=== PATIENT | female | born 1945 | race Caucasian/White ===

== ENCOUNTER 2018-04-19 11:30 | Outpatient (RCR) | payer MEDICARE, SELFPAY ==
--- NOTE | 2018-01-04 11:30 | HP.PTEVAL_ITS ---
Patient's Visit Information KALEY YAP is a 72 year old F referred to Physical Therapy by Martha Blanchard MD with a diagnosis of Sciatica. Date of Evaluation: 01/04/18 Physical Therapist: Rosa Hurst - Visit Plan Frequency: 2x /Week Duration: 4 Weeks Plan: Focus on core s/s and inflammation managment (ultrasound/e-stim) - Subjective Subjective: Patient reports that she is having left sided back pain for about 6 months. It goes down the left leg if she does a lot of walking. Insidious onset. The pain comes and goes. Went to the MD and she sent her to PT. Worst: 6/10 Agg: walking, kneeling down can't get back up without help, bending over the wrong way, can take her breathe away. Describes pain as sharp/shooting and achy. Pain down the leg is more burning, N/T. The pain radiates to the amin. Eases: sitting in the chair- recylner. Best: 0/10. Sleep: not disturbed- side sleeper. No loss or change in bowel or bladder. No history of chiro or massage therapy. Had back surgery through her neck but she is unsure what they did. No injury for the back surgery just happened. No falls or loss of balance. Feels that she is very careful to avoid falls. No walker or cane- somewhat active- yardwork and clean house. PMHx/Meds: see scanned in- no changes. No x-rays or MRI taken. - Objective Posture: FH, RS, Increased kyphosis- can correct but does not maintain. Gait: no deviation noted. Stairs: asc/desc 8 recip with 1 HR. ROM: Lumbar: WNL pain with extension and SB to the left. Hip/Knee/Ankle: WNL. HR/TR: able. SLS : 10 sec without LOB. Palpation:tender along paraspinals and into the piriformis on the left. Strength: Core: fair minus, Hip: 4/5 throughout, Knee/ Ankle: 5/5. Flex: HS: no restriction - Goals Goal 1:: Patient will be I with HEP and progression Goal Time Frame: 4-6 Weeks Goal 2:: Patient will maintain proper posture t/o tx session to demo increased core s/s Goal Time Frame: 4-6 Weeks Goal 3:: Patient will report 0/10 pain for 1 week Goal Time Frame: 4-6 Weeks - Rehabilitation Potential Physical Therapy Diagnosis: Patient presents with hypomobility- she has decreased strength and muscular endurnace leading to poor posture and increased pain. Rehabilitation Potential: Fair - Anticipated Interventions Patient/Client Instruction: Educate patient on: Benefits of Fitness Program For the Purpose of:: To increase tolerance to activity/condition/position Therapeutic Exercise to Include: Strength training, Endurance training, Balance training, Body mechanics, Postural training, Flexibilty training, Dynamic Lumbar Stabilization For the Purpose of:: To improve muscle performance and motor function TENS: Yes Cryotherapy (ice pack, ice massage): Yes Thermo therapy (hot pack): Yes Ultrasound (thermal/non thermal): Yes For the Purpose of:: To decrease pain, To decrease swelling/inflammation Thank you for the opportunity to evaluate your patient. For Medicare and Medicare HMO plans, please review the plan of care and approve it. It will need to be FAXED BACK to us at [phone] for Medicare purposes. Please let me know if there are questions or concerns regarding this plan of care. Physician Signature: Date:
--- NOTE | 2018-03-08 11:21 | HP.PTREVAL_ITS ---
Martha Blanchard MD, It has been my pleasure to treat KALEY YAP over the last 5 visits for Sciatica. Please see the progress note below for an update on the physical therapy plan of care! Subjective: Patient reports that she mostly does not hurt- she only has pain when she has to bend over to put her jeans on. She has not had any of the sharp pains. She has had major dental work in the past few few weeks. Feels that she would like to continue therapy- to get the twinge to complete go away and feel more confident with a home exercise program for the future. Objective/Function: Posture: FH, RS, Increased kyphosis- can correct with verbal cues and maintains for 3 min of re-evaluation. Gait: no deviation noted. Stairs: asc/desc 8 recip with 1 HR. ROM: Lumbar: WNL discomfort with extension. Hip/Knee/Ankle: WNL. HR/TR: able. SLS: 15 sec without LOB. Palpation: tender along paraspinals and into the piriformis on the left. Strength: Core: fair, Hip: 4+/5 throughout with the exception of hip flexion 4/5 , Knee/Ankle: 5/5. Flex: HS: no restriction Plan Plan: Cont with POC 2x a week for 3 weeks with progress of HEP Goals Goal 1:: Patient will be I with HEP and progression Goal Time Frame: 4-6 Weeks Goal Progress: Progressing Goal 2:: Patient will maintain proper posture t/o tx session to demo increased core s/s Goal Time Frame: 4-6 Weeks Goal Progress: Progressing Goal 3:: Patient will report 0/10 pain for 1 week Goal Time Frame: 4-6 Weeks Goal Progress: Progressing Anticipated Interventions Patient/Client Instruction: Educate patient on: Benefits of Fitness Program For the Purpose of:: To increase tolerance to activity/condition/position Therapeutic Exercise to Include: Strength training, Endurance training, Balance training, Body mechanics, Postural training, Flexibilty training, Dynamic Lumbar Stabilization For the Purpose of:: To improve muscle performance and motor function TENS: Yes Cryotherapy (ice pack, ice massage): Yes Thermo therapy (hot pack): Yes Ultrasound (thermal/non thermal): Yes For the Purpose of:: To decrease pain, To decrease swelling/inflammation Please do not hesitate to contact me at [phone] by phone or Fax: if you have questions or concerns regarding this new plan of care! Sincerely, Rosa Hurst
--- NOTE | 2018-04-19 11:40 | HP.PTDCSUM_ITS ---
HP - PT D/C Summary It has been my pleasure to treat KALEY YAP under orders from Martha Blanchard MD, for the diagnosis of Sciatica for a total of 10 visit(s). Discharge Date: Please see the following information for a summary of their discharge status. - Subjective Subjective: Patient reports that she is doing great- she only had one episode that she was an 8/10 and it only lasted about 5 min then she was back to pain free. Has a good HEP and has no questions. Is able to walk out to the road and back and is wearing tennis shoes. - Pain Back Pain Intensity (Out of 10): 1 Hip Pain Intensity (Out of 10): 1 - Overall Improvement % Improvement: 90 - Objective Objective/Function: Posture: good posture throughout- very aware of sitting posture in hard back chair. Gait: no deviation noted. Stairs: asc/desc 8 recip with 1 HR. ROM: Lumbar: WNL no pain/discomfort. Hip/Knee/Ankle: WNL. HR /TR: able. SLS: 15 sec without LOB. Palpation: not tender Strength: Core: fair plus, Hip: 4+/5, Knee/Ankle: 5/5. Flex: HS: no restriction - Goals Goal 1:: Patient will be I with HEP and progression Goal Progress: Goal Met Goal 2:: Patient will maintain proper posture t/o tx session to demo increased core s/s Goal Progress: Goal Met Goal 3:: Patient will report 0/10 pain for 1 week Goal Progress: Goal Met - Plan Plan: Discharge to I HEP - D/C Information If there are questions or concerns regarding this patient's physical therapy, please feel free to call me at [phone]. Thank you for the referral of this patient. Sincerely, Rosa Hurst
== END 2018-04-19 19:00 | disposition home or self-care (01) ==
LOC: PT 11:30
PROVIDERS: Family Provider Family Medicine; PCP Family Medicine; Visit Provider Family Medicine
DX: M51.17 Intervertebral disc disorders with radiculopathy, lumbosacral region (principal)
CPT/HCPCS: 97014; 97035; 97110; 97162; 97164; G0283

== ENCOUNTER → 2018-12-01 08:47 | Outpatient (CLI) | payer MEDICARE, SELFPAY ==
[2018-12-01 10:29] LABS: Absolute Lymphocyte Count 1.32 X10^3/ul (0.83-4.51); Absolute Neutrophil Count 4.2 X10^3/uL (2.0-7.7); Basophil# 0.01 X10^3/uL; Basophil% 0.2 % (0-1); Eosinophil# 0.05 X10^3/uL; Eosinophils% 0.8 % (0-5); Hematocrit 39.1 % (37-47); Hemoglobin 12.7 g/dl (12.0-15.0); Lymphocyte # 1.32 X10^3/ul (4.0); Lymphocyte % 21.9 % (19-41); Mean Corp Hgb Conc 32.5 g/gl (32-36); Mean Corpuscular Hgb 32.4 pg (27.0-32.0); Mean Corpuscular Volume 99.7 fL (81-99); Mean Platelet Vol. 10.1 fl (6.2-12.0); Monocyte# 0.44 X10^3/uL; Monocyte% 7.3 % (0-10); Neutrophil # 4.19 X10^3/uL (2.7-7.7); Neutrophil % 69.6 % (47-70); Platelet Count 272 K/mm3 (150-450); RBC Distribution Width CV 13.1 % (11.6-14.6); RBC Distribution Width SD 46.9 fl (35.1-43.9); Red Blood Count 3.92 M/mm3 (4.2-5.4)
[2018-12-01 10:34] LABS: POSITIVE COUNT NO; POSITIVE DIFFERENTIAL NO; POSITIVE MORPHOLOGY NO
[2018-12-01 10:51] LABS: ALB/GLOB Ratio 1.1 RATIO (0.9-2.4); AST(SGOT) 22 U/L (15-37); Alanine Aminotransfer ALT/SGPT 34 U/L (13-56); Albumin, Serum 3.6 g/dL (3.2-5.0); Alkaline Phosphatase 83 U/L (45-117); Anion Gap 7 (5-15); BUN 18 mg/dL (7-18); Calcium,Total 8.6 mg/dL (8.5-10.1); Chloride 110 mmol/L (98-107); Cholesterol 158 mg/dL (200); Creatinine, Serum 0.64 mg/dL (0.55-1.02); EST Glomerular Filtration Rate 97 mL/min (>60); Est Glom Filt Rate - Afr Amer 117 mL/min (>60); Globulin 3.2 g/dL (2.2-4.2); Glucose 95 mg/dL (74-106); High Density Lipoprotein 73 mg/dL; Potassium 4.3 mmol/L (3.5-5.1); Protein, Total 6.8 g/dL (6.4-8.2); Sodium Level 142 mmol/L (136-145); Triglycerides 99 mg/dL; Very Low Density Lipoprotein 20 mg/dL (5-40)
== END ==
PROVIDERS: Family Provider Family Medicine; PCP Family Medicine; Referring Provider Family Medicine; Visit Provider Family Medicine
DX: R42 Dizziness and giddiness (principal); E78.5 Hyperlipidemia, unspecified; F17.200 Nicotine dependence, unspecified, uncomplicated
CPT/HCPCS: 36415; 80053; 80061; 85025

== ENCOUNTER → 2018-12-27 | Outpatient (CLI) | payer MEDICARE, OTHER, SELFPAY ==
--- NOTE | 2018-12-27 12:44 | BI_ITS ---
MAMMOGRAPHY - BILATERAL SCREENING REASON FOR EXAM: Female, 73 years old. Routine annual screening examination. PERTINENT HISTORY: Grandmother with breast cancer. TECHNIQUE: Digital bilateral breast justin (3D mammographic acquisition) in the CC and MLO projections. 2-D mediolateral oblique (MLO) and craniocaudad (CC) views of both breasts were obtained. CAD: Full Field Digital Mammography with Computer Added Detection was performed. COMPARISON: Comparison is made with prior examination dated July 05, 2013. FINDINGS: Breast Composition: There are scattered areas of fibroglandular density. There are no dominant masses or suspicious calcifications. No other significant abnormalities are identified. There has been no significant change since the prior study. BI/SCREENING MAMM (CAD), BILAT IMPRESSION: Stable bilateral screening mammogram. Yearly follow-up mammogram recommended. (A) ASSESSMENT CATEGORY: BIRADS Category 1: Negative. A letter regarding these results will be sent to the patient by the facility within 30 days. Approximately 10% of breast cancers are not detected by mammography. A normal mammogram should not delay biopsy of a clinically suspicious abnormality. [id number] Electronically Signed: Jagjit Guillaume, at 11:10 EDT , Service support ,
== END | disposition home or self-care (01) ==
PROVIDERS: Family Provider Family Medicine; PCP Family Medicine; Referring Provider Family Medicine; Visit Provider Family Medicine
DX: Z12.31 Encounter for screening mammogram for malignant neoplasm of breast (principal)
CPT/HCPCS: 77063; 77067

== ENCOUNTER → 2020-03-26 09:53 | Outpatient (CLI) | payer MEDICARE, OTHER, SELFPAY ==
[2020-03-26 12:40] LABS: Absolute Lymphocyte Count 1.53 X10^3/uL (0.83-4.51); Absolute Neutrophil Count 4.9 X10^3/uL (2.0-7.7); Basophil# 0.02 X10^3/uL; Basophil% 0.3 % (0-1); Eosinophils% 1.4 % (0-5); Hematocrit 40.4 % (37-47); Lymphocyte # 1.53 X10^3/ul (4.0); Lymphocyte % 21.9 % (19-41); Mean Corp Hgb Conc 32.2 g/dL (32-36); Mean Corpuscular Hgb 32.4 pg (27.0-32.0); Mean Corpuscular Volume 100.7 fL (81-99); Mean Platelet Vol. 10.7 fl (6.2-12.0); Monocyte# 0.46 X10^3/uL; Monocyte% 6.6 % (0-10); NRBC Flagged by Analyzer 0 % (0-5); Neutrophil # 4.87 X10^3/uL (2.7-7.7); Neutrophil % 69.5 % (47-70); Platelet Count 246 K/mm3 (150-450); RBC Distribution Width SD 48.1 fl (35.1-43.9); Red Blood Count 4.01 M/mm3 (4.2-5.4)
[2020-03-26 13:30] LABS: ALB/GLOB Ratio 1.1 RATIO (0.9-2.4); AST(SGOT) 27 U/L (15-37); Alanine Aminotransfer ALT/SGPT 30 U/L (13-56); Albumin, Serum 3.7 g/dL (3.2-5.0); Alkaline Phosphatase 84 U/L (45-117); Anion Gap 6 (5-15); BUN 23 mg/dL (7-18); BUN/Creat Ratio 31.1 RATIO (10-20); Chloride 105 mmol/L (98-107); Cholesterol 153 mg/dL (200); Creatinine, Serum 0.74 mg/dL (0.55-1.02); EST Glomerular Filtration Rate 82 mL/min (>60); Est Glom Filt Rate - Afr Amer 99 mL/min (>60); Globulin 3.4 g/dL (2.2-4.2); Glucose 94 mg/dL (74-106); High Density Lipoprotein 73 mg/dL; Potassium 4.7 mmol/L (3.5-5.1); Protein, Total 7.1 g/dL (6.4-8.2); Sodium Level 138 mmol/L (136-145); Triglycerides 92 mg/dL; Very Low Density Lipoprotein 18 mg/dL (5-40)
== END ==
PROVIDERS: PCP Family Medicine; Visit Provider Family Medicine
DX: E78.5 Hyperlipidemia, unspecified (principal); F17.200 Nicotine dependence, unspecified, uncomplicated
CPT/HCPCS: 36415; 80053; 80061; 85025

== ENCOUNTER → 2020-09-11 14:16 | Outpatient (CLI) | payer MEDICARE, OTHER, SELFPAY | PROVIDERS: PCP Family Medicine; Visit Provider Family Medicine | DX: R30.0 Dysuria (principal) | CPT/HCPCS: 87086; 87088 ==

== ENCOUNTER 2023-01-07 07:57 | Emergency (ER) | payer MEDICARE, OTHER, SELFPAY ==
[2023-01-07 07:59] VITALS: BP 103/60; PULSE 78; RESP 16; TEMP 36.3; O2SAT 96; BMI 22.4
--- NOTE | 2023-01-07 08:25 | RAD_ITS ---
STUDY: X-RAY CHEST REASON FOR EXAM: Female, 77 years old. Cp TECHNIQUE: Single AP portable view of the chest. COMPARISON: None. FINDINGS: EKG electrodes are seen. Hyperinflation. Increased linear markings in the posterior medial segment of the left lower lobe suggestive of either atelectasis and/or scarring. There is no demonstrated pleural abnormality. Normal size heart. Normal mediastinum and renetta. Normal visualized pulmonary arteries. There is atherosclerotic calcification of the aortic arch with tortuosity. There are degenerative changes of the visualized thoracic spine. Normal visualized ribs, clavicles, and shoulders. There is no demonstrated abnormality of the visualized soft tissue structures of the upper abdomen. RAD/Chest 1 View (Portable) IMPRESSION: Hyperinflation. Mild increased linear markings in the posterior medial segment of the left lower lobe suggestive of either atelectasis and/or scarring. Electronically Signed: Jagjit Guillaume MD at 8:57 EDT ,
--- NOTE | 2023-01-07 08:26 | EKG12_ITS ---
Test Reason : CP Blood Pressure : / mmHG Vent. Rate : 076 BPM Atrial Rate : 076 BPM P-R Int : 150 ms QRS Dur : 084 ms QT Int : 364 ms P-R-T Axes : 071 -27 033 degrees QTc Int : 409 ms Normal sinus rhythm Normal ECG Confirmed by LYNN MARTE, BRANDY ([id number]), desk editor JOANNE POWELL ([id number]) on 01/12/2023 10:49:42 AM Referred By: DELORES Confirmed By:BRANDY BAILEY MD
[2023-01-07] MEDS: Ketorolac 15 MG/ML Vial IV (08:34)
--- NOTE | 2023-01-07 08:34 | EDS_ITS ---
HPI History of Present Illness Chief Complaint: Chest Pain Narrative Narrative: Patient presents with nonpleuritic retrosternal pain that started about 3 hours ago. She has no back pain or tearing sensation other than her lower back pain that she has chronically, she had recent surgery last month on the lumbar region and then again 19 days ago for a dural leak. This pain is chronic and unchanged. The chest pain is new. The chest pain does not radiate to arms legs or jaw or back. There is no difficulty breathing or pleuritic component. She has no lower extremity edema or calf pain. She has no nausea or vomiting. PFSH PFSH Home Medications cyclobenzaprine 5 mg tablet 5 mg PO DAILY 01/07/23 [History Last Taken Unknown] ferrous sulfate 325 mg (65 mg iron) tablet (FeroSul) 325 mg PO DAILY 01/07/23 [History Last Taken Unknown] oxycodone 5 mg tablet 5 mg PO Q6H PRN PRN Pain 01/07/23 [History Last Taken Unknown] simvastatin 40 mg tablet 40 mg PO DAILY 01/07/23 [History Last Taken Unknown] Allergy/AdvReac Type Severity Reaction Status Date / Time No Known Allergies Allergy Verified 01/07/23 07:58 Social History Smoking Status: Former smoker ROS ROS ED ROS Narrative Past medical history: Reviewed Medications: Reviewed Social history: Noncontributory Review of systems: All systems negative except as indicated General: No fever Eyes: No visual changes ENT: No upper airway congestion, normal voice Neck: No neck pain Cardiovascular: As in HPI Respiratory: No shortness of breath or cough Gastrointestinal: No abdominal pain, nausea vomiting or diarrhea Genitourinary: No dysuria Musculoskeletal: Denies myalgias. Low back pain as in HPI Skin: No rash Neurological: No memory loss, confusion or any focal weakness EXAM Physical Exam Narrative Exam Narrative: Physical exam General: Well nourished, Well developed, No Acute Distress Head: Normocephalic, Atraumatic Eyes: Conjunctiva not pale ENT: Moist mucous membranes Neck: Supple, Nontender, No lymphadenopathy Cardiovascular: Regular rate, Regular rhythm. No murmurs noted. Respiratory: No distress, CTA bilaterally Abdomen: Soft, Nontender, Nondistended Back: Lumbar incision is clean dry and intact. No evidence of infection. No other back pain. Extremities: Nontender, No edema. No lower extremity edema. No calf pain Skin: Normal color, No rash Neurological: Alert, Normal Strength, Normal Sensation Psychological: Normal affect Const Vital Signs: 01/07/23 07:59 01/07/23 08:06 01/07/23 10:17 Temperature 97.3 F L Temperature Source Temporal Pulse Rate 78 74 Respiratory Rate 16 16 Respiratory Effort Normal Non-Labored Blood Pressure 103/60 108/62 Blood Pressure Mean 74 77 Pulse Ox 96 98 Oxygen Delivery Method Room Air Room Air MDM MDM MDM Narrative Medical decision making narrative: A. Problems addressed Patient has chest pain, from the cardiac standpoint she was ruled adequately with an unremarkable EKG and 2 normal troponins. Her D-dimer was elevated but CT angiogram was normal. Patient appears well, she is now asymptomatic feels quite relieved after I told her the news and wants to be discharged this is quite reasonable. I will discharge her in stable condition. As far as her back, her incision is clean dry and intact and her pain is well controlled. B. Amount and/or complexity of the data 1. CBC CMP and 2 troponins were ordered and interpreted by me I discussed the patient with who was in the room 2. Independent interpretation of test Telemetry: Sinus rhythm with a rate in the 70s and 80s without ectopy C. Patient was seen by me in the emergency department. I have considered the following differential diagnoses however I was able to exclude all of these through a thorough history and physical exam as well as laboratory testing: PE or any thromboembolic etiologies, myocardial infarction, aortic dissection, esophageal rupture, pneumothorax, musculoskeletal emergencies, upper abdominal pathologies such as pancreatitis, cholecystitis or choledocholithiasis, as well as ruptured bowel. I considered admission but after discussion with the patient we came to a mutual agreement that the patient is stable for discharge due to the following reasons: Patient is adequately ruled out for ACS per our hospital protocol. PE study is normal. Lab Data Labs: Laboratory Results - last 24 hr 01/07/23 01/07/23 01/07/23 08:09 08:09 08:09 WBC 5.5 RBC 2.95 L Hgb 9.6 L Hct 30.7 L MCV 104.1 H MCH 32.5 H MCHC 31.3 L RDW Std Deviation 47.9 H RDW Coeff of Shazia 12.6 Plt Count 465 H MPV 9.0 Immature Gran % (Auto) 0.500 Neut % (Auto) 71.8 H Lymph % (Auto) 17.8 L [place] % (Auto) 7.5 Eos % (Auto) 2.0 Baso % (Auto) 0.4 Absolute Neuts (auto) 4.0 Absolute Lymphs (auto) 0.98 Nucleated RBC % 0 D-Dimer Quant (PE/DVT) 2.25 H* Sodium 139 Potassium 4.1 Chloride 109 H Carbon Dioxide 26.0 Anion Gap 4 L BUN 11 Creatinine 0.48 L Estim Creat Clear Calc 45.50 Est GFR (MDRD) Af Amer 160 Est GFR (MDRD) Non-Af 132 BUN/Creatinine Ratio 22.7 H Glucose 103 Calcium 8.9 Total Bilirubin 0.30 AST 16 ALT 17 Alkaline Phosphatase 135 H Troponin I High Sens 6 Total Protein 6.3 L Albumin 3.0 L Globulin 3.3 Albumin/Globulin Ratio 0.9 01/07/23 10:14 WBC RBC Hgb Hct MCV MCH MCHC RDW Std Deviation RDW Coeff of Shazia Plt Count MPV Immature Gran % (Auto) Neut % (Auto) Lymph % (Auto) [place] % (Auto) Eos % (Auto) Baso % (Auto) Absolute Neuts (auto) Absolute Lymphs (auto) Nucleated RBC % D-Dimer Quant (PE/DVT) Sodium Potassium Chloride Carbon Dioxide Anion Gap BUN Creatinine Estim Creat Clear Calc Est GFR (MDRD) Af Amer Est GFR (MDRD) Non-Af BUN/Creatinine Ratio Glucose Calcium Total Bilirubin AST ALT Alkaline Phosphatase Troponin I High Sens 4 Total Protein Albumin Globulin Albumin/Globulin Ratio Radiography Diagnostic Testing: Clinical Impression(s) from Imaging Studies Chest X-Ray 01/07/23 08:25 IMPRESSION: Hyperinflation. Mild increased linear markings in the posterior medial segment of the left lower lobe suggestive of either atelectasis and/or scarring. Electronically Signed: Jagjit Guillaume MD at 8:57 EDT , Chest CTA 01/07/23 09:02 IMPRESSION: 5.1 mm slightly spiculated nodule in the anterior lateral aspect of the right upper lobe as described. A 6 month follow-up CT chest is recommended for further evaluation. Hyperinflation and emphysematous changes with scarring at both lung bases. No evidence of pulmonary embolism. Electronically Signed: Jagjit Guillaume MD at 9:58 EDT , Chest x-ray interpreted by me as normal EKG Initial EKG: Comments: Sinus rhythm with a rate of 76. Normal NH and QTc intervals. No ischemic changes. Interpreted by emergency doctor Discharge Plan Triage Chief Complaint: Chest Pain Other Complaint: Back ED Provider: Charles Palmer Dx/Rx/DC Orders Clinical Impression: Encounter for post surgical wound check, Chest pain Instructions: ED Chest Pain, Uncertain Cause Prescriptions: No Action simvastatin 40 mg tablet 40 mg PO DAILY Label Comments: Take 1 tablet by mouth once daily ferrous sulfate [FeroSul] 325 mg (65 mg iron) tablet 325 mg PO DAILY Label Comments: Take 1 tablet by mouth once daily. oxycodone 5 mg tablet 5 mg PO Q6H PRN PRN (Reason: Pain) Label Comments: Take 1 tablet by mouth every 6 hours as needed for pain. cyclobenzaprine 5 mg tablet 5 mg PO DAILY Label Comments: Take 1 tablet by mouth three times daily as needed for muscle spasm. Primary Care Provider: Martha Blanchard Referrals: Martha Blanchard MD [Primary Care Provider] - 1-2 Days if not improving Disposition Disposition: Home, Self Care
[2023-01-07 08:37] LABS: Absolute Lymphocyte Count 0.98 X10^3/uL (0.83-4.51); Basophil# 0.02 X10^3/uL; Basophil% 0.4 % (0-1); Eosinophil# 0.11 X10^3/uL; Hematocrit 30.7 % (37-47); Hemoglobin 9.6 g/dL (12.0-15.0); Lymphocyte # 0.98 X10^3/ul (0.83-4.51); Lymphocyte % 17.8 % (19-41); Mean Corp Hgb Conc 31.3 g/dL (32-36); Mean Corpuscular Hgb 32.5 pg (27.0-32.0); Mean Corpuscular Volume 104.1 fL (81-99); Monocyte# 0.41 X10^3/uL; Monocyte% 7.5 % (0-10); NRBC Flagged by Analyzer 0 % (0-5); Neutrophil # 3.95 X10^3/uL (2.7-7.7); Neutrophil % 71.8 % (47-70); Platelet Count 465 K/mm3 (150-450); RBC Distribution Width CV 12.6 % (11.6-14.6); RBC Distribution Width SD 47.9 fl (35.1-43.9); Red Blood Count 2.95 M/mm3 (4.2-5.4); White Blood Count 5.5 K/mm3 (4.4-11.0)
[2023-01-07 08:54] LABS: D-Dimer Quantitative (DVT/PE) 2.25 FEU/ug/m (0.27-0.49)
--- NOTE | 2023-01-07 08:55 | ED.RN ---
LAB CALLED CRITICAL OF D-DIMER OF 2.25. DR HENSON
[2023-01-07 09:01] LABS: ALB/GLOB Ratio 0.9 RATIO (0.9-2.4); AST(SGOT) 16 U/L (15-37); Alanine Aminotransfer ALT/SGPT 17 U/L (13-56); Alkaline Phosphatase 135 U/L (45-117); Anion Gap 4 (5-15); BUN 11 mg/dL (7-18); BUN/Creat Ratio 22.7 RATIO (10-20); Calcium,Total 8.9 mg/dL (8.5-10.1); Chloride 109 mmol/L (98-107); Creatinine, Serum 0.48 mg/dL (0.55-1.02); EST Glomerular Filtration Rate 132 mL/min (>60); Est Glom Filt Rate - Afr Amer 160 mL/min (>60); Globulin 3.3 g/dL (2.2-4.2); Glucose 103 mg/dL (74-106); Potassium 4.1 mmol/L (3.5-5.1); Protein, Total 6.3 g/dL (6.4-8.2); Sodium Level 139 mmol/L (136-145); Troponin-I HS 6 pg/mL (3.0-54.0)
--- NOTE | 2023-01-07 09:02 | CT_ITS ---
STUDY: CTA CHEST REASON FOR EXAM: Female, 77 years old. PE RADIATION DOSAGE (If Supplied By Facility): CTDIvol = ( 9.23 ) mGy, DLP = ( 210.03 ) mGycm TECHNIQUE: The examination was performed with the intravenous administration of IV 100mL Isovue-370. Post-processing of the angiographic images was performed, with multiplanar reformation and 3D reconstruction. Individualized dose optimization techniques were used for this CT. COMPARISON: None. FINDINGS: Normal enhancement of the main pulmonary artery and right and left pulmonary arteries. Normal enhancement of the bilateral peripheral pulmonary arteries. There is no demonstrated pulmonary embolism. Normal thoracic aorta and visualized great vessels. There is no demonstrated aortic dissection. There are calcifications of the coronary arteries. Normal mediastinum. Normal hilar regions. Normal visualized trachea and bronchi. Hyperinflation. Mild degree of emphysematous changes more prominent in the upper lobes. There is a 5.1 mm slightly spiculated nodule in the anterior lateral aspect of the right upper lobe as seen on axial image #149 and coronal image #58. Increased markings at the lung bases suggestive of a basilar scarring. Normal pleura. Normal chest wall structures. There are degenerative changes of thoracic spine. Normal visualized upper abdomen. CT/CTA Chest W/WO Contrast IMPRESSION: 5.1 mm slightly spiculated nodule in the anterior lateral aspect of the right upper lobe as described. A 6 month follow-up CT chest is recommended for further evaluation. Hyperinflation and emphysematous changes with scarring at both lung bases. No evidence of pulmonary embolism. Electronically Signed: Jagjit Guillaume MD at 9:58 EDT ,
[2023-01-07 10:17] VITALS: BP 108/62; PULSE 74; RESP 16; O2SAT 98
[2023-01-07 10:38] LABS: Troponin-I HS 4 pg/mL (3.0-54.0)
[2023-01-07 12:09] VITALS: BP 111/58; PULSE 72; RESP 15; O2SAT 98
== END 2023-01-07 12:10 | disposition home or self-care (01) ==
PROVIDERS: Emergency Provider Emergency Medicine; PCP Family Medicine; Visit Provider Emergency Medicine
DX: R07.9 Chest pain, unspecified (principal); Z79.899 Other long term (current) drug therapy; Z87.891 Personal history of nicotine dependence
CPT/HCPCS: 71045; 71275; 80053; 84484; 85025; 85379; 93005; 96374; 99285; Q9967

== ENCOUNTER → 2023-06-22 | Outpatient (CLI) | payer MEDICARE, OTHER, SELFPAY ==
[2023-06-22 12:18] LABS: Anion Gap 4 (5-15); BUN 15 mg/dL (7-18); BUN/Creat Ratio 21.9 RATIO (10-20); Calcium,Total 8.9 mg/dL (8.5-10.1); Chloride 107 mmol/L (98-107); Creatinine, Serum 0.68 mg/dL (0.55-1.02); EST Glomerular Filtration Rate 89 mL/min (>60); Est Glom Filt Rate - Afr Amer 107 mL/min (>60); Glucose 83 mg/dL (74-106); Potassium 4.9 mmol/L (3.5-5.1); Sodium Level 142 mmol/L (136-145)
== END | disposition home or self-care (01) ==
LOC: BFHLAB 09:02
PROVIDERS: PCP Nurse Practitioner Family; Referring Provider Nurse Practitioner Family; Visit Provider Nurse Practitioner Family
DX: Z01.818 Encounter for other preprocedural examination (principal)
CPT/HCPCS: 36415; 80048

== ENCOUNTER → 2023-07-03 | Outpatient (CLI) | payer MEDICARE, OTHER, SELFPAY ==
--- NOTE | 2023-07-03 12:54 | CT_ITS ---
EXAM: CT CHEST WITHOUT INTRAVENOUS CONTRAST CLINICAL INDICATION: LUNG NODULE TECHNIQUE: Helically acquired images were obtained of the chest without intravenous contrast. This CT exam was performed using one or more of the following dose reduction techniques: automated exposure control, adjustment of the mA and/or kV according to patient size, and/or use of iterative reconstruction technique. COMPARISON: CTA chest, 01/07/2023 FINDINGS: LUNGS AND PLEURAL SPACES: Unchanged spiculated 5 mm nodule in the right upper lobe. Pleural-based small nodules in the right upper lobe are present, largest measuring 5 mm. Unchanged 4 mm spiculated nodule in the left upper lobe. Dependent airspace disease in the bilateral lungs, likely indicative of atelectasis. Bilateral apical scarring. Centrilobular emphysematous changes. HEART: Coronary artery calcifications and/or stents. Heart size is normal. No pericardial effusion. MEDIASTINUM: No significant abnormality. No mediastinal or hilar adenopathy. Esophagus is unremarkable. No hiatal hernia. THYROID: No significant abnormality. No thyroid lesions. BONES/JOINTS: Degenerative changes in the spine. No suspicious lytic or blastic abnormality. VASCULATURE: Atherosclerosis of the aorta and its branch vessels. CT/Chest without Contrast IMPRESSION: 1. Unchanged pulmonary nodules since prior examination dated 01/07/2023. Fleischner Society Guidelines (MacMahon, et al. Radiology 2017; 284(1):228-43) suggest that one should consider a follow-up chest CT at 12 months in a patient with a high risk of malignancy due to the morphology and/or location of this nodule. If unchanged, no further follow-up is necessary. 2. Centrilobular emphysematous changes. Electronically Signed: Gustavo Dickson DO at 23:33 EDT ,
== END | disposition home or self-care (01) ==
LOC: CT 12:54
PROVIDERS: PCP Nurse Practitioner Family; Referring Provider Family Medicine; Visit Provider Family Medicine
DX: R91.1 Solitary pulmonary nodule (principal)
CPT/HCPCS: 71250

== ENCOUNTER → 2024-08-03 | Outpatient (CLI) | payer MEDICARE, OTHER, SELFPAY ==
--- NOTE | 2024-08-03 11:11 | RAD_ITS ---
INDICATION: abnormal stress EXAMINATION/TECHNIQUE: X-RAY - XR Chest 2 Views COMPARISON: January 07, 2023 FINDINGS: LINES/DEVICES: None. LUNGS: No consolidation, edema or effusion. No pneumothorax. MEDIASTINUM AND CARDIOVASCULAR STRUCTURES: Cardiac silhouette not enlarged. Central airways and mediastinal contour are unremarkable. BONES AND SOFT TISSUES: There are postsurgical changes at the visualized lumbar spine. RAD/Chest PA and Lateral IMPRESSION: No radiographic evidence of acute cardiopulmonary disease. Electronically Signed: Mary Jo Welch MD at 8:29 EST ,
[2024-08-03 12:36] LABS: Absolute Lymphocyte Count 2.22 X10^3/uL (0.83-4.51); Absolute Neutrophil Count 4.7 X10^3/uL (2.0-7.7); Basophil# 0.04 X10^3/uL; Basophil% 0.5 % (0-1); Eosinophils% 1.3 % (0-5); Hematocrit 37.8 % (37-47); Hemoglobin 12.6 g/dL (12.0-15.0); Lymphocyte # 2.22 X10^3/ul (0.83-4.51); Lymphocyte % 29.1 % (19-41); Mean Corp Hgb Conc 33.3 g/dL (32-36); Mean Corpuscular Hgb 32.7 pg (27.0-32.0); Mean Corpuscular Volume 98.2 fL (81-99); Mean Platelet Vol. 9.8 fl (6.2-12.0); Monocyte# 0.56 X10^3/uL; Monocyte% 7.3 % (0-10); NRBC Flagged by Analyzer 0 % (0-5); Neutrophil # 4.68 X10^3/uL (2.7-7.7); Neutrophil % 61.4 % (47-70); Platelet Count 278 K/mm3 (150-450); RBC Distribution Width CV 13.5 % (11.6-14.6); RBC Distribution Width SD 49.1 fl (35.1-43.9); Red Blood Count 3.85 M/mm3 (4.2-5.4); White Blood Count 7.6 K/mm3 (4.4-11.0)
[2024-08-03 13:05] LABS: Anion Gap 4 (5-15); BUN 21 mg/dL (7-18); BUN/Creat Ratio 37.2 RATIO (10-20); Calcium,Total 8.9 mg/dL (8.5-10.1); Chloride 110 mmol/L (98-107); Creatinine, Serum 0.56 mg/dL (0.55-1.02); EST Glomerular Filtration Rate 111 mL/min (>60); Est Glom Filt Rate - Afr Amer 134 mL/min (>60); Glucose 94 mg/dL (74-106); Potassium 4.3 mmol/L (3.5-5.1); Sodium Level 138 mmol/L (136-145)
== END | disposition home or self-care (01) ==
LOC: RAD 11:09
PROVIDERS: PCP Family Medicine; Referring Provider Internal Medicine Cardiovascular Disease; Visit Provider Internal Medicine Cardiovascular Disease
DX: R94.39 Abnormal result of other cardiovascular function study (principal)
CPT/HCPCS: 36415; 71046; 80048; 85025

== ENCOUNTER 2024-08-09 08:02 | Day surgery (SDC) | payer MEDICARE, OTHER, SELFPAY ==
[2024-08-08 08:15] VITALS: BMI 23.1
--- NOTE | 2024-08-09 09:26 | CL.D_ITS ---
Patient Name: KALEY YAP Study Date: 08/09/2024 Performing: Gabriel Kaplan MD Ht: 66 inches 167.64 cm : 1945 Wt: 142.99 lbs 64.86 kg Age: 78 Gender: female BSA: 1.73 PROCEDURE(S) PERFORMED DC01-(45142)LHC/COR/LV CLINICAL PROFILE AND INDICATIONS Indications: Suspected CAD Heart Failure: None Stress/Imaging Date: 03/27/24Stress Test with SPECT MPI: Positive Low Risk CAD Presentations: No Sxs, no angina. CONCLUSIONS Mild coronary calcification but no high-grade obstructive disease present. Preserved ejection fraction. RECOMMENDATIONS Medical therapy DESCRIPTION OF PROCEDURE The patient arrived to the procedure lab. The risks and benefits of the procedure as well as a full description of our services here and current unavailability of surgical backup were fully explained to the patient and/or their significant other prior to the catheterization. The Timeout was completed, verifying the correct patient and procedure. The patient's procedural site was prepped and draped in the usual fashion. Local anesthetic was given subcutaneously to right radial region with Lidocaine 2%. Using a modified Seldinger technique, arterial access was obtained via the right radial artery, a 6Fr sheath was inserted. Left Coronary Artery selective angiography was performed in multiple views using a 5 Fr. 4.0 Elberfeld catheter. Right Coronary Artery selective angiography was then performed in multiple views using a 5 Fr. 4.0 Elberfeld catheter. Left Ventriculography was performed in STERLING projection using a 5 Fr. Pigtail catheter. LV to AO pullback pressures were then recorded.The arterial sheath was pulled and a TR Band was applied for hemostasis. 11cc of air applied CORONARY ANGIOGRAPHY DOMINANCE: Right Dominant LEFT HEART ASSESSMENT Left Ventricular Ejection Fraction: by LV Gram 70 % Normal LV wall motion Normal Left Ventricular systolic function LEFT MAIN: Angiographically normal LEFT ANTERIOR DESCENDING ARTERY: Moderate calcification, Medium size vessel with 3 diagonal branches with no high-grade stenosis present. CIRCUMFLEX ARTERY: Mild luminal irregularities less than 30% RIGHT CORONARY ARTERY: Mild calcification Mild luminal irregularities less than 30% COMPLICATIONS No Complications PROCEDURE MEDICATIONS Versed 0.5 mg IV Fentanyl 25 mcg IV Fentanyl 25 mcg IV Versed 0.5 mg IV Versed 1 mg IV Versed 1 mg IV Oxygen: 2 L/min via nasal cannula Heparin given IA 08/09/2024 09:09:24 Verapamil 2.5mg, Ntg 100mcgs, 3000 units of Heparin given IA 08/09/2024 09:09:24 SUMMARY OF HEMODYNAMIC DATA Time AIR REST ECG 08:21:37 ECG 08:22:08 ECG 08:41:29 AO 94/54 (72) SA 09:12:44 LV 96/0, 6 09:17:28 LV 88/0, 6 09:17:35 LV 98/2, 9 09:18:14 LVp 96/-3, 8 09:18:17 AOp 108/49 (73) 09:18:22 Signed By Gabriel Kaplan MD On 08/09/2024 09:26:06 Gabriel Kaplan MD
== END 2024-08-09 11:50 | disposition home or self-care (01) ==
PROVIDERS: PCP Family Medicine; Referring Provider Internal Medicine Cardiovascular Disease; Visit Provider Internal Medicine Cardiovascular Disease
DX: I25.10 Atherosclerotic heart disease of native coronary artery without angina pectoris (principal); R94.39 Abnormal result of other cardiovascular function study; E78.5 Hyperlipidemia, unspecified; M54.50 Low back pain, unspecified; G89.29 Other chronic pain; M43.16 Spondylolisthesis, lumbar region; F17.200 Nicotine dependence, unspecified, uncomplicated; Z98.1 Arthrodesis status; Z79.82 Long term (current) use of aspirin; Z79.899 Other long term (current) drug therapy
CPT/HCPCS: 93458; 99152; 99153; Q9967; C1769; C1894

== ENCOUNTER 2025-04-20 09:43 | Day surgery (SDC) | payer MEDICARE, OTHER, SELFPAY ==
--- NOTE | 2025-04-17 10:02 | PAT.ANESEVAL ---
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 When Was Last Pacemaker Check QUESTION #4 FULL TEXT: You/Your Family Experience fever (hyperthermia) with Anesthesia Last Oral Intake Last Oral intake: Last Oral Intake NPO since Meds taken in AM with sips of water? Meds patient instructed to take am of surgery PONV PONV - commodity supervisor: PONV - commodity supervisor Female Yes 04/17/25 09:04 HX of Motion Sickness No 04/17/25 09:04 HX of N/V After Surgery No 04/17/25 09:04 Non-Smoker Yes 04/17/25 09:04 Duration of Surgery greater No 04/17/25 09:04 than 60 minutes Number of Risk Factors 2 04/17/25 09:04 PONV Score Moderate Risk 04/17/25 09:04 Height & Weight Height & Weight: Anesthesia: Height & Weight Height 5 ft 6 in 02/27/25 10:15 Respiratory Assessment Respiratory Assessment - commodity supervisor: Respiratory Tract Infection Hx - commodity supervisor Hx Respiratory Tract Infection No 04/17/25 09:04 STOP Sleep Apnea STOP Sleep Apnea - commodity supervisor: STOP Sleep Apnea - commodity supervisor Hx Hypertension Yes: CONTROLLED ON MED 04/17/25 09:04 Hx Sleep Apnea No 04/17/25 09:04 CPAP BIPAP Do you snore loudly (louder No 04/17/25 09:04 than talking or can be heard Do you often feel tired/ No 04/17/25 09:04 fatigued/ sleepy during daytime? Has anyone observed you stop No 04/17/25 09:04 breathing during sleep? STOP Results Negative 04/17/25 09:04 QUESTION #5 FULL TEXT : Do you snore loudly (louder than talking or can be heard through closed doors)? 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 Specify any problems Hx of Preganancy in last 3 No 04/17/25 09:04 Months Nurse Filling Out Transfusion VCHRISTIN 04/17/25 09:04 & Questions: Date: 04/17/25 04/17/25 09:04 Time: 09:06 04/17/25 09:04 Patient unable to answer at this time (ie. confused, unrespo /Reproduction History /Reproductive History - commodity supervisor: /Reproductive Hx- commodity supervisor Hx Now No 04/17/25 09:04 Gestational Age (in weeks): EDC: Hx Hx Para Hx Section SAB No 04/17/25 09:04 [facility] Medical History (Updated 04/17/25 @ 09:04 by Marleny Lambert) Wears glasses Post-menopausal Ambulates with cane Rheumatoid arthritis Back pain Migraine headache Gastric reflux Former smoker History of stress test Cardiology follow-up encounter Hearing problem Frequent headaches UTI (urinary tract infection) Arthritis Impaired functional mobility, balance, and endurance Bilateral leg weakness Spondylolisthesis of lumbar region Hyperlipidemia Vertigo Chronic low back pain Abnormal stress test Home Medications ?Medication ?Instructions ?Recorded ?Last Taken ?Type oxycodone 5 mg tablet 5 mg PO Q6H PRN PRN Pain 01/07/23 Unknown History simvastatin 40 mg tablet 40 mg PO DAILY 01/07/23 Unknown History gqcvznu-bkaodpusxogpj-adlcavdg 250 1 tab PO Q4-6H PRN pain 08/03/24 Unknown History mg-250 mg-65 mg tablet (Migraine Relief) meclizine 25 mg tablet 12.5 mg PO .every 6 hours PRN 08/03/24 Unknown History dizziness propylene glycol (PF) 0.6 % eye 1 drp ophthalmic (eye) BID 08/03/24 Unknown History drops (Systane Complete PF) aspirin 81 mg tablet,delayed 81 mg PO BID 02/27/25 04/16/25 History release (Adult Aspirin Regimen) pantoprazole 40 mg tablet,delayed 40 mg PO QDAY 02/27/25 Unknown History release vitamins A,C,I-wnpv-zyfzcm 2,148 1 tab PO BID 04/17/25 Unknown History mcg-113 mg-45 mg-17.4 mg tablet (Eye Multivitamin) Allergy/AdvReac Type Severity Reaction Status Date / Time No Known Allergies Allergy Verified 04/17/25 08:56 Family History Other Arthritis High cholesterol Hypertension Osteoporosis Surgical History (Updated 04/17/25 @ 09:04 by Marleny Lambert) History of cardiac catheterization Hx of bilateral cataract extraction History of hip replacement History of lumbar fusion Social History Smoking Status: Never smoker alcohol intake: never substance use type: does not use Audit: Pertinent Findings Pertinent Findings EKG Perinent findings: 08/03/2024. Sinus rhythm. Left anterior fascicular block. Voltage criteria for LVH. Heart catheterization pertinent findings: 08/09/2024. Mild coronary calcification. No high-grade obstructive disease present. Preserved ejection fraction. Recommend medical therapy. Consult pertinent findings: Cardiology 03/07/2025. Nonobstructive coronary artery disease. Continue medications. Recommendation Anesthesia Recommendation Anesthesia recommendation: OPTIMIZED for anesthesia
[2025-04-20] VITALS (8 sets, daily range): BP systolic 104–123; BP diastolic 52–81; PULSE 63–74; RESP 16; TEMP 36.4–37.2; O2SAT 97–99; BMI 25.2
[2025-04-20] MEDS: Lactated Ringers 1,000 ML 15 ML IV (10:22)
--- NOTE | 2025-04-20 10:29 | PCM.HP.STD ---
HPI - General General Date of Admission: 04/20/25 Date of Service: 04/20/25 Chief Complaint: GERD HPI Narrative KALEY YAP, is a 79 F who presents with the Chief Complaint: heartburn - seen in office today with her - indigestion for a couple of years, worse at HS, has been taking Rolaids - denies any N/V - denies any dysphagia since starting pantoprazole - states she was previously waking at HS and acting like she could not swallow Rolaids and water often changing her answers - symptoms do not prevent her from eating - denies any weight loss - started on pantoprazole 40mg once daily 12/22/2024 - since starting no longer taking Rolaids - recovering from hip surgery 12/22/2024, ambulates with a cane - Meloxicam daily for the first 2 weeks post-op, then Motrin 500mg BID x3 weeks - discontinued last month - Oxycodone post-op - reports she was only taking Tylenol pre-op - Excedrin very infrequent - Colonoscopy prep poor 14 years ago - never followed up - denies any family h/o colon CA - has never had an EGD - denies any abdominal pain - denies any change bowel habits habits - denies any h/o smoking - denies any family h/o esophageal or gastric cancer [facility] Medical History Wears glasses Post-menopausal Ambulates with cane Rheumatoid arthritis Back pain Migraine headache Gastric reflux Former smoker History of stress test Cardiology follow-up encounter Hearing problem Frequent headaches UTI (urinary tract infection) Arthritis Impaired functional mobility, balance, and endurance Bilateral leg weakness Spondylolisthesis of lumbar region Hyperlipidemia Vertigo Chronic low back pain Abnormal stress test Home Medications ?Medication ?Instructions ?Recorded ?Last Taken ?Type oxycodone 5 mg tablet 5 mg PO Q6H PRN PRN Pain 01/07/23 04/19/25 History simvastatin 40 mg tablet 40 mg PO DAILY 01/07/23 04/19/25 History qvntlvg-curixzihxyvnu-yjszeouh 250 1 tab PO Q4-6H PRN pain 08/03/24 Unknown History mg-250 mg-65 mg tablet (Migraine Relief) meclizine 25 mg tablet 12.5 mg PO .every 6 hours PRN 08/03/24 04/19/25 History dizziness propylene glycol (PF) 0.6 % eye 1 drp ophthalmic (eye) BID 08/03/24 04/19/25 History drops (Systane Complete PF) aspirin 81 mg tablet,delayed 81 mg PO BID 02/27/25 04/16/25 History release (Adult Aspirin Regimen) pantoprazole 40 mg tablet,delayed 40 mg PO QDAY 02/27/25 04/19/25 History release vitamins A,C,N-nrbh-jeovaf 2,148 1 tab PO BID 04/17/25 04/19/25 History mcg-113 mg-45 mg-17.4 mg tablet (Eye Multivitamin) Allergy/AdvReac Type Severity Reaction Status Date / Time No Known Allergies Allergy Verified 04/17/25 08:56 Family History Other Arthritis High cholesterol Hypertension Osteoporosis Surgical History History of cardiac catheterization Hx of bilateral cataract extraction History of hip replacement History of lumbar fusion Social History Smoking Status: Never smoker alcohol intake: never substance use type: does not use ROS Constitutional Constitutional: Denies fatigue, fever(s), poor appetite, weight gain or weight loss Gastrointestinal Gastrointestinal: Denies belching, bloating, change in bowel habits, change in stool character, chewing difficulty, coffee ground emesis, constipation, cramping, diarrhea, dyspepsia, dysphagia, early satiety, excessive flatus, fecal incontinence, heartburn, hematemesis, hematochezia, hemorrhoids, loose stools, melena, nausea, odynophagia, rectal bleeding, tenesmus, vomiting or weight changes Vital Signs Vital Signs Vital Signs: 04/20/25 10:15 04/20/25 10:15 Temperature 98.9 F Temperature Source Temporal Pulse Rate 67 Respiratory Rate 16 Respiratory Pattern Normal Blood Pressure 108/52 L Blood Pressure Mean 70 Blood Pressure Source Monitor Blood Pressure Position Semi-Fowlers Blood Pressure Location Right Arm Pulse Ox 97 Oxygen Delivery Method Room Air Weight Weight: 157 lb 6.561 oz Body Mass Index (BMI) 25.2 Physical Exam Const alert, oriented x3, no apparent distress and healthy appearing General Appearance: cooperative GI normal to inspection, nondistended, normoactive bowel sounds, soft to palpation, non-tender and non-distended Percussion: normal to percussion Rectal Exam: deferred Assessment & Plan Assessment/Plan (1) GERD (gastroesophageal reflux disease): QUALIFIERS: Esophagitis presence: esophagitis presence not specified Qualified Code(s): K21.9 - Gastro-esophageal reflux disease without esophagitis PLAN: Assessment and Plan Assessment and Plan (1) Encounter for screening colonoscopy: Status: Acute (2) GERD (gastroesophageal reflux disease): Status: Acute Qualifiers: Esophagitis presence: esophagitis presence not specified Qualified Code(s): K21.9 - Gastro-esophageal reflux disease without esophagitis Plan 79y/o female presents for initial consultation with complaints of GERD x2 years. Symptoms have resolved with pantoprazole 40mg once daily. She denies any ongoing dysphagia or indigestion. She is no longer waking at HS taking Rolaids. Denies any ongoing dysphagia. She denies any family history of esophageal or gastric cancer. Given her age and the chronicity of symptoms, initial endoscopy should be considered to screen for Clinton?s esophagus before making long-term management decisions, even in the absence of alarm symptoms. Lifestyle modifications including weight management, avoiding late meals, head-of-bed elevation for nocturnal symptoms, and avoidance of dietary triggers is recommended as adjuncts to pharmacologic therapy. Patient Instructions: Continue pantoprazole 40mg daily - ACG and AGA recommend considering?step-down to the lowest effective PPI dose or on-demand/intermittent therapy?rather than indefinite continuous high-dose PPI, as long-term therapy is not always necessary in uncomplicated cases, will await EGD findings before making recommendations ot taper to lowest effective dose EGD Cologuard
--- NOTE | 2025-04-20 10:38 | PRE.ANES_ITS ---
ASA Classification* ASA Classification ASA Classification: 2 Assessment & Plan Anesthesia* Anesthesia Assessment Anesthesia Assessment: Discussed sedation and/or anesthesia options, risks, benefits, and alternatives with patient/parents/legal guardian/POA. Questions invited. The patient/parents/legal guardian/POA seems to understand and agrees to proceed with anesthesia plan. Reviewed the physical assessment, medical history, allergy history and patient home medications list prior to surgery/procedure/anesthetic and documented any changes. Performed airway and anesthesia risk assessments. Anesthesia Type Anesthesia Type: MAC History Source History Obtained from:: Patient and Chart Anesthesia Focused Assessment* Temperature: 98.9 F Pulse Rate: 67 Blood Pressure: 108/52 Respiratory Rate: 16 Pulse Ox: 97 Oxygen Delivery Method: Room Air Airway Assessment Mouth opens: >3 cm Mallampati Score: II Teeth Condition: Chipped/Broken and Missing Neck Range of motion (ROM): Limited ROM Labs Anesthesia Preop lab: CBC WBC 7.6 K/mm3 (4.4-11.0) 08/03/24 11:08/03/24 RBC 3.85 M/mm3 (4.2-5.4) L 08/03/24 11:32 08/03/24 Hgb 12.6 g/dL (12.0-15.0) 08/03/24 11:32 08/03/24 Hct 37.8 % (37-47) 08/03/24 11:32 08/03/24 Plt Count 278 K/mm3 (150-450) 08/03/24 11:32 08/03/24 CHEMISTRY Potassium 4.3 mmol/L (3.5-5.1) 08/03/24 11:32 08/03/24 Sodium 138 mmol/L (136-145) 08/03/24 11:32 08/03/24 BUN 21 mg/dL (7-18) H 08/03/24 11:08/03/24 Creatinine 0.56 mg/dL (0.55-1.02) 08/03/24 11:32 08/03/24 Glucose 94 mg/dL (74-106) 08/03/24 11:32 08/03/24 COAG Pre-Assessment Diagnosis/Proposed Procedure Planned Operative Procedure(s): EGD Anesthesia History 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 When Was Last Pacemaker Check QUESTION #4 FULL TEXT: You/Your Family Experience fever (hyperthermia) with Anesthesia Last Oral Intake Last Oral intake: Last Oral Intake NPO since Meds taken in AM with sips of water? Meds patient instructed to take am of surgery PONV PONV - telecommunications network planner: PONV - telecommunications network planner Female Yes 04/17/25 09:04 HX of Motion Sickness No 04/17/25 09:04 HX of N/V After Surgery No 04/17/25 09:04 Non-Smoker Yes 04/17/25 09:04 Duration of Surgery greater No 04/17/25 09:04 than 60 minutes Number of Risk Factors 2 04/17/25 09:04 PONV Score Moderate Risk 04/17/25 09:04 Height & Weight Height & Weight: Anesthesia: Height & Weight Height 5 ft 6.14 in 04/20/25 10:15 Weight: 71.4 kg 04/20/25 10:15 Body Mass Index (BMI) 25.2 04/20/25 10:15 Respiratory Assessment Respiratory Assessment - telecommunications network planner: Respiratory Tract Infection Hx - telecommunications network planner Hx Respiratory Tract Infection No 04/17/25 09:04 STOP Sleep Apnea STOP Sleep Apnea - telecommunications network planner: STOP Sleep Apnea - telecommunications network planner Hx Hypertension Yes: CONTROLLED ON MED 04/17/25 09:04 Hx Sleep Apnea No 04/17/25 09:04 CPAP BIPAP Do you snore loudly (louder No 04/17/25 09:04 than talking or can be heard Do you often feel tired/ No 04/17/25 09:04 fatigued/ sleepy during daytime? Has anyone observed you stop No 04/17/25 09:04 breathing during sleep? STOP Results Negative 04/17/25 09:04 QUESTION #5 FULL TEXT : Do you snore loudly (louder than talking or can be heard through closed doors)? 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 Specify any problems Hx of Preganancy in last 3 No 04/17/25 09:04 Months Nurse Filling Out Transfusion VCHRISTIN 04/17/25 09:04 & Questions: Date: 04/17/25 04/17/25 09:04 Time: 09:06 04/17/25 09:04 Patient unable to answer at this time (ie. confused, unrespo /Reproduction History /Reproductive History - telecommunications network planner: /Reproductive Hx- telecommunications network planner Hx Now No 04/17/25 09:04 Gestational Age (in weeks): EDC: Hx Hx Para Hx Section SAB No 04/17/25 09:04 Active Medications Active Medications: Current Medications Generic Name Dose Route Start Last Admin Trade Name Freq PRN Reason Stop Dose Admin Lactated Ringer's 1,000 mls @ 15 mls/hr 04/20/25 10:00 04/20/25 10:22 IV 15 mls/hr .Q48H MERY Administration PFSH Medical History Wears glasses Post-menopausal Ambulates with cane Rheumatoid arthritis Back pain Migraine headache Gastric reflux Former smoker History of stress test Cardiology follow-up encounter Hearing problem Frequent headaches UTI (urinary tract infection) Arthritis Impaired functional mobility, balance, and endurance Bilateral leg weakness Spondylolisthesis of lumbar region Hyperlipidemia Vertigo Chronic low back pain Abnormal stress test Home Medications ?Medication ?Instructions ?Recorded ?Last Taken ?Type oxycodone 5 mg tablet 5 mg PO Q6H PRN PRN Pain 04/19/25 History simvastatin 40 mg tablet 40 mg PO DAILY 01/07/23 07/ History deuvqmx-nnwcnstxcdoru-qvjsxqkt 250 1 tab PO Q4-6H PRN pain 08/03/24 Unknown History mg-250 mg-65 mg tablet (Migraine Relief) meclizine 25 mg tablet 12.5 mg PO .every 6 hours MT N 08/03/24 04/19/25 History dizziness propylene glycol (PF) 0.6 % eye 1 drp ophthalmic (eye) BID 08/03/24 04/19/25 History drops (Systane Complete PF) aspirin 81 mg tablet,delayed 81 mg PO BID 02/27/25 History release (Adult Aspirin Regimen) pantoprazole 40 mg tablet,delayed 40 mg PO QDAY 04/19/25 History release vitamins A,C,O-aiyv-awvodc 2,148 1 tab PO BID 04/17/25 04/19/25 History mcg-113 mg-45 mg-17.4 mg tablet (Eye Multivitamin) Allergy/AdvReac Type Severity Reaction Status Date / Time No Known Allergies Allergy Verified 04/17/25 08:56 Family History Other Arthritis High cholesterol Hypertension Osteoporosis Surgical History History of cardiac catheterization Hx of bilateral cataract extraction History of hip replacement History of lumbar fusion Social History Smoking Status: Never smoker alcohol intake: never substance use type: does not use Review of Systems (Anesthesia) ROS Narrative System reviewed and no additional complaints, except as documented.
--- NOTE | 2025-04-20 10:45 | EGD_PTH ---
PATIENT: KALEY YAP LOC: EN U#:[id number] AGE/SX: 79/F ROOM: RE04/20/[address]: Dr. Alexis Mejia DO : 1945 BED: DIS: 04/20/2025 SPEC #: [id number] RECD: 04/20/25 13:26 STATUS: ALEXI LUIS ENRIQUE #: [id number] AGUSTIN: 04/20/25 10:[address]: Alexis Mejia DEPT: SURGICAL PATHOLOGY RECD BY: Jabari Quiglye ENTERED: 04/20/25 14:58 SP TYPE: EGD BIOPSY LUCINA DR: Dr. Norma Hall DO Tissues: A - Esophagus, NOS Procedures: Surgery Specimen Level IV HEADER OPERATION: EGD, biopsy PRE-OP DIAGNOSIS: Encounter for screening colonoscopy, GERD TISSUE SUBMITTED: A- Distal esophagus biopsy MICROSCOPIC DIAGNOSIS A. 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 - Negative for dysplasia. Note: The diagnosis depends on the location of the biopsy and the extent of the mucosal irregularity. If the biopsy originates from the tubular esophagus and the mucosal irregularity extends at least 1 cm above the top of the gastric folds, this represents Clinton mucosa. If the biopsy originates from the gastric cardia and or the mucosal irregularity is less than 1 cm in extent, this represents intestinal metaplasia. MICROSCOPIC DESCRIPTION Slides are reviewed. GROSS DESCRIPTION A. Received in fixative is one container labeled with the patient's name and designated Distal esophagus biopsy. The specimen consists of three irregular fragments of light nath soft tissue that in aggregate measure 0.2 to 0.4 cm. The specimen is totally submitted in one cassette. OK 04/20/2025 CPT:01292 ADDENDUM ADDENDUM ADDENDUM ADDENDUM ADDENDUM ADDENDUM ADDENDUM ADDENDUM ADDENDUM ADDENDUM ADDENDUM ADDENDUM 06/20/2025 09:29 ADDENDUM 06/20/2025 09:29 ADDENDUM 06/20/2025 09:29 ADDENDUM 06/20/2025 09:29 ADDENDUM 06/20/2025 09:29 This addendum is added to incorporate an outside pathology consultation report. CASTLE BIOSCIENCE - TISSUE CYPHER - BLOCK A 1 Risk Class: INTERMEDIATE Risk Score: 6.3 5-year probability of progression: 11% Please see complete above mentioned consultation report in EMR
--- NOTE | 2025-04-20 11:16 | OP.PROVAT_ITS ---
04/20/2025 Norma Hall Re : Upper GI endoscopy procedure for Mary Ellen Taylor Gio Hall This procedure was performed on March. 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 Biopsied. - Hiatal hernia. - The examination was otherwise normal. - Normal examined duodenum. Recommendations : - Discharge patient to home. - Resume previous diet. - Continue present medications. - Await pathology results. My findings are described in the full procedure note, which is enclosed. If I can be of further assistance, please feel free to contact me at . Sincerely, Alexis Mejia, 04/20/2025 11:16:01 AM This report has been signed electronically.
--- NOTE | 2025-04-20 11:16 | OP.EGD_ITS ---
Patient Name: Mary Ellen Taylor Procedure Date: 04/20/2025 11:02 AM Date of : 1945 Age: 79 Procedure: Upper GI endoscopy Indications: Heartburn, Suspected esophageal reflux Providers: DO Sarmad Vasques MD: Norma Hall Medicines: Monitored Anesthesia Care Patient Profile: This is a 79 year old female. Refer to note in patient chart for documentation of history and physical. Patient has symptoms of chronic heartburn. Complications: No immediate complications. Procedure: Pre-Anesthesia Assessment: - Prior to the procedure, a History and Physical was performed, and patient medications and allergies were reviewed. The patient is competent. The risks and benefits of the procedure and the sedation options and risks were discussed with the patient. All questions were answered and informed consent was obtained. Patient identification and proposed procedure were verified by the physician in the pre-procedure area. Mental Status Examination: alert and oriented. Airway Examination: normal oropharyngeal airway and neck mobility. Respiratory Examination: clear to auscultation. CV Examination: normal. Prophylactic Antibiotics: The patient does not require prophylactic antibiotics. Prior Anticoagulants: The patient has taken no anticoagulant or antiplatelet agents except for NSAID medication. ASA Grade Assessment: II - A patient with mild systemic disease. After reviewing the risks and benefits, the patient was deemed in satisfactory condition to undergo the procedure. The anesthesia plan was to use monitored anesthesia care (MAC). Immediately prior to administration of medications, the patient was re-assessed for adequacy to receive sedatives. The heart rate, respiratory rate, oxygen saturations, blood pressure, adequacy of pulmonary ventilation, and response to care were monitored throughout the procedure. The physical status of the patient was re-assessed after the procedure. After obtaining informed consent, the endoscope was passed under direct vision. Throughout the procedure, the patient's blood pressure, pulse, and oxygen saturations were monitored continuously. The Endoscope was introduced through the mouth, and advanced to the second part of duodenum. The upper GI endoscopy was accomplished without difficulty. The patient tolerated the procedure well. 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 The maximum longitudinal extent of these mucosal changes was 8 cm in length. Mucosa was biopsied with a cold forceps for histology in a targeted manner at intervals of 1 cm in the lower third of the esophagus. One specimen bottle was sent to pathology. Verification of patient identification for the specimen was done. Estimated blood loss was minimal. A hiatal hernia was present. The exam was otherwise without abnormality. The examined duodenum was normal. 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 Biopsied. - Hiatal hernia. - The examination was otherwise normal. - Normal examined duodenum. Recommendation: - Discharge patient to home. - Resume previous diet. - Continue present medications. - Await pathology results. Procedure Code(s): --- Professional --- 28672, Esophagogastroduodenoscopy, flexible, transoral; with biopsy, single or multiple CPT copyright 2021 [employer]. All rights reserved. The codes documented in this report are preliminary and upon inside sales specialist review may be revised to meet current compliance requirements. Alexis Mejia DO 04/20/2025 11:16:01 AM This report has been signed electronically. Number of Addenda: 0 Note Initiated On: 04/20/2025 11:02 AM
--- NOTE | 2025-04-20 11:22 | PCM.POST.ANE ---
Anesthesia: Postop Eval I Current Vital Signs Temperature: 97.6 F Pulse Rate: 74 Blood Pressure: 105/62 Respiratory Rate: 16 Pulse Ox: 99 Assessment Airway patent: Yes Spontaneous unlabored respirations: Yes nausea: No Vomiting: No Anesthesia Complication: No Fluid Hydration Crystalloid volume administer (ml): 200 Total IV fluid infused: 200 Progress Note Anesthesia document: Postop Eval 1 completed: Yes
--- NOTE | 2025-04-20 12:42 | POSTOPAN2_ITS ---
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 Anesthesia Postop Eval I: Fluid Summary Crystalloid volume administer 200 04/20/25 11:22 AUTOMATED CUTTING MACHINE OPERATOR.TNES (ml) Colloids volume administered ( ml) Blood Product volume administered (ml) Total IV fluid infused 200 04/20/25 11:22 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
--- NOTE | 2025-04-20 12:42 | PCM.POSTANE2 ---
Anesthesia Postop Eval I Sum Postop Eval Completion status Anesthesia document: Postop Eval 1 completed: Yes Anesthesia Postop Eval I Summary Anesthesia Postop Eval I Summary: Anesthesia Postop Eval I: Assessment Summary Airway patent Yes 04/20/25 11:22 [email or web address] Spontaneous unlabored Yes 04/20/25 11:22 [email or web address] respirations Mental status nausea No 04/20/25 11:22 [email or web address] Vomiting No 04/20/25 11:22 [email or web address] Anesthesia Postop Eval I: Fluid Summary Crystalloid volume administer 200 04/20/25 11:22 [email or web address] (ml) Colloids volume administered ( ml) Blood Product volume administered (ml) Total IV fluid infused 200 04/20/25 11:22 [email or web address] Anesthesia Postop Eval I: Summary Notes Anesthesia Complication No 04/20/25 11:22 [email or web address] Anesthesia Complication Comment: Post-operative progress note Anesthesia: Postop Eval II Evaluation Mental status: Awake and Calm Pain Level: 1 nausea: No Vomiting: No Complications Anesthesia Complication: No
== END 2025-04-20 11:50 | disposition home or self-care (01) ==
LOC: EN 09:45 → AC 09:45
PROVIDERS: PCP Family Medicine; Referring Provider Family Medicine; Visit Provider Internal Medicine Gastroenterology
PROC: 0DJ08ZZ Inspection of Upper Intestinal Tract, Via Natural or Artificial Opening Endoscopic (ICD-10-PCS; CPT 43235; principal; 2025-04-20 10:40)
DX: K22.70 Barrett's esophagus without dysplasia (principal); M06.9 Rheumatoid arthritis, unspecified; K44.9 Diaphragmatic hernia without obstruction or gangrene; K21.9 Gastro-esophageal reflux disease without esophagitis; I10 Essential (primary) hypertension; E78.5 Hyperlipidemia, unspecified; Z79.82 Long term (current) use of aspirin; Z79.899 Other long term (current) drug therapy; Z87.891 Personal history of nicotine dependence
CPT/HCPCS: 43239; 88305